=== PATIENT | male | born 1965 | race Caucasian/White ===

== ENCOUNTER 2018-02-25 06:27 | Emergency (ER) | payer SELFPAY ==
[2018-02-25 06:28] VITALS: BP 159/98; PULSE 86; RESP 16; TEMP 36.7; O2SAT 99; BMI 34.9
--- NOTE | 2018-02-25 06:47 | ED.VISSUMM ---
- ER Visit Summary Date of Service: 02/25/18 Chief Complaint: Dental pain History of Present Illness: The patient is a 52 M states the last 3 days since night has had right lower jaw dental pain mild swelling. No fever. She has upper dentures. Multiple lower missing teeth. Physical Examination: Well-appearing middle-age female. Vital signs are stable and afebrile. H EENT exam she is minimal swelling in her right lower jaw at the midportion. Her entire back molars and premolars have been removed. Her left upper dentition is all false teeth. She has a cavity on her right lower last tooth. The molars and premolars are missing. Her left lower jaw also has the last 2 dentition half cavities. There is no significant gingival swelling. No palpable abscess. No trismus. Posterior pharynx unremarkable. Neck nontender no lymphadenopathy. Lungs clear to auscultation bilaterally. Heart regular rhythm no murmur. Abdomen soft nontender. She is moving all 4 extremities. No edema. Neurologically she is awake and alert with no focal motor deficits. Test Results: None Emergency Department Course and Treatment: Treatment Plan: Clindamycin for the cavities and limited [place] 10 no refill for the pain. Otherwise Motrin. Call and follow-up with a dentist as soon as possible. Disposition: Discharge Impression: Acute dental pain secondary to dental caries This note was generated with [employer] dictation software. It may contain incorrect words, spelling, and punctuation that were not noted in review of the chart prior to signing ED Disposition - Plan for ED Patient: Chief Complaint: Dental
--- NOTE | 2018-02-25 06:52 | ED.DCSUM_ITS ---
- ER Visit Summary Date of Service: 02/25/18 Chief Complaint: Dental pain History of Present Illness: The patient is a 52 M states the last 3 days since night has had right lower jaw dental pain mild swelling. No fever. She has upper dentures. Multiple lower missing teeth. Physical Examination: Well-appearing middle-age female. Vital signs are stable and afebrile. H EENT exam she is minimal swelling in her right lower jaw at the midportion. Her entire back molars and premolars have been removed. Her left upper dentition is all false teeth. She has a cavity on her right lower last tooth. The molars and premolars are missing. Her left lower jaw also has the last 2 dentition half cavities. There is no significant gingival swelling. No palpable abscess. No trismus. Posterior pharynx unremarkable. Neck nontender no lymphadenopathy. Lungs clear to auscultation bilaterally. Heart regular rhythm no murmur. Abdomen soft nontender. She is moving all 4 extremities. No edema. Neurologically she is awake and alert with no focal motor deficits. Test Results: None Emergency Department Course and Treatment: Treatment Plan: Clindamycin for the cavities and limited [place] 10 no refill for the pain. Otherwise Motrin. Call and follow-up with a dentist as soon as possible. Disposition: Discharge Impression: Acute dental pain secondary to dental caries This note was generated with [employer] dictation software. It may contain incorrect words, spelling, and punctuation that were not noted in review of the chart prior to signing ED Disposition - Plan for ED Patient: Chief Complaint: Dental
--- NOTE | 2018-02-25 06:52 | ED.DEP ---
ED Disposition - Plan for ED Patient: Disposition: Home or Assisted Living Chief Complaint: Dental Instructions: ED Cavity Dental Prescriptions: Hydrocodone Bitart/Apap 5-325 [[place] 5MG-325MG] 1 tab PO Q6H PRN PRN 3 Days #10 tab PRN Reason: Pain Clindamycin [Cleocin] 150 mg PO 4X/DAY #30 cap Referrals: Allie Murray [NON-STAFF] - As soon as possible Additional Instructions: Clindamycin antibiotic 1 pill 4 times a day. Motrin for pain and Tylenol. Ice to your jaw. Call and follow-up with a dentist as soon as possible.
--- NOTE | 2018-02-25 06:56 | DCINST.ED_ITS ---
ED Disposition - Plan for ED Patient: Disposition: Home or Assisted Living Chief Complaint: Dental Instructions: ED Cavity Dental Prescriptions: Hydrocodone Bitart/Apap 5-325 [[place] 5MG-325MG] 1 tab PO Q6H PRN PRN 3 Days #10 tab PRN Reason: Pain Clindamycin [Cleocin] 150 mg PO 4X/DAY #30 cap Referrals: Allie Murray [NON-STAFF] - As soon as possible Additional Instructions: Clindamycin antibiotic 1 pill 4 times a day. Motrin for pain and Tylenol. Ice to your jaw. Call and follow-up with a dentist as soon as possible.
== END 2018-02-25 07:09 | disposition home or self-care (01) ==
PROVIDERS: Emergency Provider Emergency Medicine
DX: K02.9 Dental caries, unspecified (principal); K08.89 Other specified disorders of teeth and supporting structures; Z97.2 Presence of dental prosthetic device (complete) (partial); Z72.0 Tobacco use
CPT/HCPCS: 99282

== ENCOUNTER → 2024-05-28 | Outpatient (CLI) | payer SELFPAY ==
--- OUTSIDE RECORDS SUMMARY | 2024-05-28 12:07 | XMS RPT_ITS | CCD ---
Author Organization [facility] Inform ion Partnership [facility] Care Team Providers Care Fbi Profiler Name Role Phone Sujata Glover MD Primary Care Provider SUJATA GLOVER Primary Care Unavailable JOSESITO RAMIREZ Referring Unavailable SUJATA GLOVER Primary Care Unavailable SUJATA GLOVER Primary Care Unavailable Allergies Allergy Classification Reported Allergen(s) Allergy Type Date of Onset Reaction(s) Facility (4 sources) FLUoxetine; Translations: [FLUOXETINE] Drug Allergy 09-24-2020 Mental Status Change [facility] (4 sources) Penicillins; Translations: [PENICILLINS] Drug Allergy 12-06-2013 Rash [facility] Work Phone: Medications Completed/Discontinued Medications Medication Drug Class(es) Dates Sig (Normalized) Sig (Original) brompheniramine maleate 0.4 mg/ml / dextromethorphan hydrobromide 2 mg/ml / pseudoephedrine hydrochloride 6 mg/ml oral solution (3 sources) alpha-Adrenergic Agonist, Uncompetitive M-vrffsm-O-asparta te Receptor Antagonist, Sigma-1 Agonist Start: 04-20-2019 take 5 mL by mouth every six hours as needed Brompheniramine-Pse udoeph-DM (BROMFED DM) 2-30-10 mg/5 mL syrup Take 5 mL by mouth four times daily as needed. 120 mL 0 04/20/2019 Active Comment on above: Take 5 mL by mouth f our times daily as needed. busPIRone hydrochloride 5 mg oral tablet (3 sources) Start: 09-24-2020 take 1 tablet by mouth three times daily as needed busPIRone (BUSPAR) 5 mg tablet Indications: Anxiety and depression Take 1 tablet by mouth three times daily as needed. 90 tablet 1 09/24/2020 Active Comment on above: Take 1 tablet by florentin th three times daily as needed. lisinopril 20 mg oral tablet (3 sources) Angiotensin Converting Enzyme Inhibitor Start: 02-12-2021 take 1 tablet by mouth once daily lisinopril (ZESTRIL, PRINIVIL) 20 mg tablet Indications: Primary hypertension Take 1 tablet by mouth once daily. 30 tablet 2 02/12/2021 Active Comment on above: Take 1 tablet by florentin th once daily. ondansetron 4 mg disintegrating oral tablet (3 sources) Serotonin-3 Receptor Antagonist Start: 02-12-2021 take 1 tablet by mouth every six hours as needed for nausea and nausea ondansetron orally disintegrating (ZOFRAN ODT) 4 mg disintegrating tablet Indications: Nausea Take 1 tablet by mouth every 6 hours as needed for nausea/vomiting. 20 tablet 0 02/12/2021 Active Comment on above: Take 1 tablet by florentin th every 6 hours as needed for nausea/vomiting. predniSONE 10 mg oral tablet (2 sources) Start: 04-14-2023 predniSONE (DELTASONE) 10 mg tablet Indications: Upper respiratory tract infection, unspecified type Take 4 tabs daily for 3 days, then 2 tabs daily for 3 days, then 1 tab daily for 3 days with food. 21 tablet 0 04/14/2023 Active Comment on above: Take 4 tabs daily fo r 3 days, then 2 tabs daily for 3 days, then 1 tab daily for 3 days with food. sertraline 25 mg oral tablet (3 sources) Serotonin Reuptake Inhibitor Start: 02-19-2021 take 1 tablet by mouth once daily sertraline (ZOLOFT) 25 mg tablet Take 1 tablet by mouth once daily. 30 tablet 3 02/19/2021 Active Comment on above: Take 1 tablet by florentin th once daily. 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)] Onset: 02-26-2024 Chronic Diabetes mellitus without complication (1 source) Type 2 diabetes mellitus without complications; Translations: [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)] Onset: 02-26-2024 Chronic Immunizations and screening for infectious disease (1 source) Encounter for screening for infections with a predominantly sexual mode of transmission; Translations: [Screening for venereal disease] Onset: 11-29-2023 Episodic Mood disorders (3 sources) Depressive disorder; Translations: [Depression] Onset: 12-06-2013 12-06-2013 Chronic Nutritional deficiencies (1 source) Vitamin D deficiency, unspecified; Translations: [Avitaminosis D] Onset: 11-29-2023 Chronic Other nutritional; endocrine; and metabolic disorders (3 sources) Cholesterol level - finding; Translations: [Lipoprotein deficiency] Onset: 08-18-2015 08-18-2015 Chronic Other nutritional; endocrine; and metabolic disorders (1 source) Obesity, unspecified; Translations: [Obesity, unspecified classification, unspecified obesity type, unspecified whether serious comorbidity present] Onset: 11-29-2023 Chronic Other screening for suspected conditions (not mental disorders or infectious disease) (2 sources) Patient encounter status; Translations: [Encounter for screening mammogram for malignant neoplasm of breast] Episodic Other upper respiratory infections (1 source) Upper respiratory infection; Translations: [Acute upper respiratory infection, unspecified] 04-14-2023 Episodic Past or Other Problems Problem Classification Problem Date Documented Da te Episodic/Chronic Diabetes mellitus without complication (3 sources) Hyperglycemia; Translations: [Impaired fasting glucose] Onset: 12-06-2013 12-06-2013 Episodic Malaise and fatigue (4 sources) Fatigue; Translations: [Other fatigue] Onset: 12-06-2013 12-06-2013 Episodic Residual codes; unclassified (3 sources) Tobacco user; Translations: [Tobacco use] Onset: 08-18-2015 08-18-2015 Episodic Results Test Name Value Interpretation Reference Range Facil ity 25(OH)D3 [facility] 2023 25-hydroxyvitamin D3 [Mass/Vol] 114.0 ng/mL High 31.0-80.0 [facility] Comment on above: Order Comment: Speci men Type: BLOOD SPECIMEN Ordering Facility: [facility] Address: [address] [place] [address], [place] [id number] Performed By: #### 7 3752-8, , 84989-8 #### [facility] CLIA [id number] [address] [place] [address] [place] ALBUMIN/CREATININE RATIO, UR INEon 02-26-2024 Albumin DL <= 20 mg/L (U) [Mass/Vol] mg/dL Normal [facility] Comment on above: Order Comment: Speci men Type: BLOOD SPECIMEN Ordering Facility: [facility] Address: [address] [place] [address], [place] [address] Performed By: #### 7 3752-8, , #### [facility] CLIA [id number] [address] [place] [address] [place] Albumin/Creatinine (U) [Mass ratio] <14 Normal <30 [facility] Comment on above: Order Comment: Speci men Type: BLOOD SPECIMEN Ordering Facility: [facility] Address: [address] [place] [address], [place] [address] Result Comment: Adul t Male and Female Nephrotic Criteria: <30 mg/g is considered normal to mildly increased 30-300 mg/g is considered moderately increased >300 mg/g is considered severely increased KDIGO. (2013). KDIGO 2012 Clinical Practice Guideline for the Evaluation and Management of Chronic Kidney Disease. Official Journal of the International Society of Nephrology, 3(1), 1-150. Performed By: #### 7 3752-8, , #### [facility] CLIA [id number] [address] [place] [address] [place] Creatinine (U) [Mass/Vol] 85.9 mg/dL Normal 20.0-300.0 [facility] Comment on above: Order Comment: Speci men Type: BLOOD SPECIMEN Ordering Facility: [facility] Address: [address] [place] [address], [place] [address] Performed By: #### 7 3752-8, , #### [facility] CLIA [id number] [address] [place] [address] [place] CBC W Auto Differential pane l (Bld)on 02-26-2024 Basophils (Bld) [#/Vol] 0.06 10*3/uL Normal <0.11 [facility] Comment on above: Order Comment: Speci men Type: BLOOD SPECIMEN Ordering Facility: [facility] Address: [address] [place] [address] Performed By: #### 5 7021-8 #### [facility] CLIA [id number] [address] [place] [address] [place] Basophils/100 WBC (Bld) 0.7 % Normal [facility] Comment on above: Order Comment: Speci men Type: BLOOD SPECIMEN Ordering Facility: [facility] Address: [address] [place] [address] Performed By: #### 5 7021-8 #### [facility] CLIA [id number] [address] [place] [address] [place] Differential cell count method Nom (Bld) Auto Normal [facility] Comment on above: Order Comment: Speci men Type: BLOOD SPECIMEN Ordering Facility: [facility] Address: [address] [place] [address] Performed By: #### 5 7021-8 #### [facility] CLIA [id number] [address] [place] [address] [place] Eosinophils (Bld) [#/Vol] 0.43 10*3/uL Normal <0.46 [facility] Comment on above: Order Comment: Speci men Type: BLOOD SPECIMEN Ordering Facility: [facility] Address: [address] [place] [address] Performed By: #### 5 7021-8 #### [facility] CLIA [id number] [address] [id number] [address] [place] Eosinophils/100 WBC (Bld) 5.0 % Normal [facility] Comment on above: Order Comment: Speci men Type: BLOOD SPECIMEN Ordering Facility: [facility] Address: [address] [place] [address] Performed By: #### 5 7021-8 #### [facility] CLIA [id number] [address] [place] [address] [place] Erythrocyte distribution width (RBC) [Ratio] 12.3 % Normal 11.5-15.0 [facility] Comment on above: Order Comment: Speci men Type: BLOOD SPECIMEN Ordering Facility: [facility] Address: [address] [place] [address] Performed By: #### 5 7021-8 #### [facility] CLIA [id number] [address] [place] [address] [place] Hematocrit (Bld) [Volume fraction] 45.7 % Normal 36.0-46.0 [facility] Comment on above: Order Comment: Speci men Type: BLOOD SPECIMEN Ordering Facility: [facility] Address: [address] [place] [address] Performed By: #### 5 7021-8 #### [facility] CLIA [id number] [address] [place] [address] [place] Hemoglobin (Bld) [Mass/Vol] 15.4 g/dL Normal 11.5-15.5 [facility] Comment on above: Order Comment: Speci men Type: BLOOD SPECIMEN Ordering Facility: [facility] Address: [address] [place] [address] Performed By: #### 5 7021-8 #### [facility] CLIA [id number] [address] [place] [address] [place] Immature granulocytes (Bld) [#/Vol] 0.03 10*3/uL Normal <0.10 [facility] Comment on above: Order Comment: Speci men Type: BLOOD SPECIMEN Ordering Facility: [facility] Address: [address] [place] [address], [place] [address] Performed By: #### 5 7021-8 #### [facility] CLIA [id number] [address] [place] [address] [place] Immature granulocytes/100 WBC (Bld) 0.3 % Normal [facility] Comment on above: Order Comment: Speci men Type: BLOOD SPECIMEN Ordering Facility: [facility] Address: [address] [place] [address] Performed By: #### 5 7021-8 #### [facility] CLIA [id number] [address] [place] [address] [place] Lymphocytes (Bld) [#/Vol] 3.18 10*3/uL Normal 1.00-4.00 [facility] Comment on above: Order Comment: Speci men Type: BLOOD SPECIMEN Ordering Facility: [facility] Address: [address] [place] [address] Performed By: #### 5 7021-8 #### [facility] CLIA [id number] [address] [place] [address] [place] Lymphocytes/100 WBC (Bld) 37.1 % Normal [facility] Comment on above: Order Comment: Speci men Type: BLOOD SPECIMEN Ordering Facility: [facility] Address: [address] [place] [address] Performed By: #### 5 7021-8 #### [facility] CLIA [id number] [address] [place] [address] [place] MCH (RBC) [Entitic mass] 32.9 pg Normal 26.0-34.0 [facility] Comment on above: Order Comment: Speci men Type: BLOOD SPECIMEN Ordering Facility: [facility] Address: [address] [place] [address] Performed By: #### 5 7021-8 #### [facility] CLIA [id number] [address] [place] [address] [place] MCHC (RBC) [Mass/Vol] 33.7 g/dL Normal 30.5-36.0 [facility] Comment on above: Order Comment: Speci men Type: BLOOD SPECIMEN Ordering Facility: [facility] Address: [address] [place] [address] Performed By: #### 5 7021-8 #### [facility] CLIA [id number] [address] [place] [address] [place] MCV (RBC) [Entitic vol] 97.6 fL Normal 80.0-100.0 [facility] Comment on above: Order Comment: Speci men Type: BLOOD SPECIMEN Ordering Facility: [facility] Address: [address] [place] [address] Performed By: #### 5 7021-8 #### [facility] CLIA [id number] [address] [place] [address] [place] Monocytes (Bld) [#/Vol] 0.49 10*3/uL Normal <0.87 [facility] Comment on above: Order Comment: Speci men Type: BLOOD SPECIMEN Ordering Facility: [facility] Address: [address] [place] [address] Performed By: #### 5 7021-8 #### [facility] CLIA [id number] [address] [place] [address] [place] Monocytes/100 WBC (Bld) 5.7 % Normal [facility] Comment on above: Order Comment: Speci men Type: BLOOD SPECIMEN Ordering Facility: [facility] Address: [address] [place] [address] Performed By: #### 5 7021-8 #### [facility] CLIA [id number] [address] [place] [address] [place] Neutrophils (Bld) [#/Vol] 4.39 10*3/uL Normal 1.45-7.50 [facility] Comment on above: Order Comment: Speci men Type: BLOOD SPECIMEN Ordering Facility: [facility] Address: [address] [place] [address] Performed By: #### 5 7021-8 #### [facility] CLIA [id number] [address] [place] [address] [place] Neutrophils/100 WBC (Bld) 51.2 % Normal [facility] Comment on above: Order Comment: Speci men Type: BLOOD SPECIMEN Ordering Facility: [facility] Address: [address] [place] [address] Performed By: #### 5 7021-8 #### [facility] CLIA [id number] [address] [place] [address] [place] Nucleated RBC (Bld) [#/Vol] 10*3/uL Normal <0.01 [facility] Comment on above: Order Comment: Speci men Type: BLOOD SPECIMEN Ordering Facility: [facility] Address: [address] [place] [address] Performed By: #### 5 7021-8 #### [facility] CLIA [id number] [address] [place] [address] [place] Nucleated RBC/100 WBC (Bld) [Ratio] 0.0 /100 WBC Normal [facility] Comment on above: Order Comment: Speci men Type: BLOOD SPECIMEN Ordering Facility: [facility] Address: [address] [place] [address] Performed By: #### 5 7021-8 #### [facility] CLIA [id number] [address] [place] [address] [place] Platelet mean volume (Bld) [Entitic vol] 11.5 fL Normal 9.0-12.7 [facility] Comment on above: Order Comment: Speci men Type: BLOOD SPECIMEN Ordering Facility: [facility] Address: [address] [place] [address] [place] [address] Performed By: #### 5 7021-8 #### [facility] CLIA [id number] [address] [place] [address] [place] Platelets (Bld) [#/Vol] 191 10*3/uL Normal 150-400 [facility] Comment on above: Order Comment: Speci men Type: BLOOD SPECIMEN Ordering Facility: [facility] Address: [address] [place] [address], [place] [address] Performed By: #### 5 7021-8 #### [facility] CLIA [id number] [address] [place] [address] [place] RBC (Bld) [#/Vol] 4.68 10*6/uL Normal 3.90-5.20 [facility] Comment on above: Order Comment: Speci men Type: BLOOD SPECIMEN Ordering Facility: [facility] Address: [address] [place] [address], [place] [address] Performed By: #### 5 7021-8 #### [facility] CLIA [id number] [address] [place] [address] [place] WBC (Bld) [#/Vol] 8.58 10*3/uL Normal 3.70-11.00 [facility] Comment on above: Order Comment: Speci men Type: BLOOD SPECIMEN Ordering Facility: [facility] Address: [address] [place] [address], [place] [address] Performed By: #### 5 7021-8 #### [facility] CLIA [id number] [address] [place], [place] [address] [place] Comprehensive metabolic 2000 panelon 02-26-2024 Albumin [Mass/Vol] 4.1 g/dL Normal 3.9-4.9 [facility] Comment on above: Order Comment: Speci men Type: BLOOD SPECIMEN Ordering Facility: [facility] Address: [address] [place] [address] Performed By: #### 7 3752-8, 55905-5, 23424-6 #### [facility] CLIA [id number] [address] [place] [address] [place] ALP [Catalytic activity/Vol] 158 U/L High 34-123 [facility] Comment on above: Order Comment: Speci men Type: BLOOD SPECIMEN Ordering Facility: [facility] Address: [address] [place] [address], [place] [address] Performed By: #### 7 3752-8, 75236-3, 87923-9 #### [facility] CLIA [id number] [address] [place] [address] [place] ALT [Catalytic activity/Vol] 50 U/L High 7-38 [facility] Comment on above: Order Comment: Speci men Type: BLOOD SPECIMEN Ordering Facility: [facility] Address: [address] [place] [address], [place] [address] Performed By: #### 7 3752-8, 12616-4, 60324-4 #### [facility] CLIA [id number] [address] [place] [address] [place] Anion gap [Moles/Vol] 13 mmol/L Normal 8-15 [facility] Comment on above: Order Comment: Speci men Type: BLOOD SPECIMEN Ordering Facility: [facility] Address: [address] [place] [address], [place] [address] Performed By: #### 7 3752-8, 69768-9, 28548-2 #### [facility] CLIA [id number] [address] [place] [address] [place] AST [Catalytic activity/Vol] 69 U/L High 13-35 [facility] Comment on above: Order Comment: Speci men Type: BLOOD SPECIMEN Ordering Facility: [facility] Address: [address] [place] [address] Performed By: #### 7 3752-8, 18749-4, 22708-5 #### [facility] CLIA [id number] [address] [place] [address] [place] Bilirubin [Mass/Vol] 0.6 mg/dL Normal 0.2-1.3 [facility] Comment on above: Order Comment: Speci men Type: BLOOD SPECIMEN Ordering Facility: [facility] Address: [address] [place] [address], [place] [address] Performed By: #### 7 3752-8, 57680-5, 05491-3 #### [facility] CLIA [id number] [address] [place] [address] [place] Calcium [Mass/Vol] 10.0 mg/dL Normal 8.5-10.2 [facility] Comment on above: Order Comment: Speci men Type: BLOOD SPECIMEN Ordering Facility: [facility] Address: [address] [place] [address], [place] [address] Performed By: #### 7 3752-8, 96748-0, 24058-2 #### [facility] CLIA [id number] [address] [place] [address] [place] Chloride [Moles/Vol] 104 mmol/L Normal 98-107 [facility] Comment on above: Order Comment: Speci men Type: BLOOD SPECIMEN Ordering Facility: [facility] Address: [address] [place] [address], [place] [address] Performed By: #### 7 3752-8, 10733-2, 57009-6 #### [facility] CLIA [id number] [facility] [place] [address] [place] CO2 [Moles/Vol] 22 mmol/L Normal 22-30 [facility] Comment on above: Order Comment: Speci men Type: BLOOD SPECIMEN Ordering Facility: [facility] Address: [address] [place] [address], [place] [address] Performed By: #### 7 3752-8, 81347-0, 44232-9 #### [facility] CLIA [id number] [address] [place] [address] [place] Creatinine [Mass/Vol] 0.79 mg/dL Normal 0.58-0.96 [facility] Comment on above: Order Comment: Zaida hull Type: BLOOD SPECIMEN Ordering Facility: [facility] Address: [address] [place] [address], [place] [address] Performed By: #### 7 3752-8, 01703-2, 31393-6 #### [facility] CLIA [id number] [address] [place] [address] [place] Creatinine and Glomerular filtration rate.predicted panel (S/P/Bld) 87 mL/min/1.73m??? Normal >=60 [facility] Comment on above: Order Comment: Zaida hull Type: BLOOD SPECIMEN Ordering Facility: [facility] Address: [address] [place] [address], [place] [address] Result Comment: Margo mated Glomerular Filtration Rate (eGFR) is calculated using the 2020 CKD-EPI creatinine equation. This equation utilizes serum creatinine, sex, and age as parameters. The creatinine assay has traceable calibration to isotope dilution-mass spectrometry. Refer to KDIGO guidelines for clinical interpretation. In patients with unstable renal function, e.g. those with acute kidney injury, the eGFR may not accurately reflect actual GFR. Performed By: #### 7 3752-8, 69403-7, 94466-2 #### [facility] CLIA [id number] [address] [place], [place] [address] [place] Glucose [Mass/Vol] 209 mg/dL High 74-99 [facility] Comment on above: Order Comment: Zaida hull Type: BLOOD SPECIMEN Ordering Facility: [facility] Address: [address] [place] [address], [place] [address] Result Comment: The [place] Diabetes Association (ADA) provides guidance for cutoff values for fasting glucose and random glucose. The ADA defines fasting as no caloric intake for at least 8 hours. Fasting plasma glucose results between 100 to 125 mg/dL indicate increased risk for diabetes (prediabetes). Fasting plasma glucose results greater than or equal to 126 mg/dL meet the criteria for diagnosis of diabetes. In the absence of unequivocal hyperglycemia, results should be confirmed by repeat testing. In a patient with classic symptoms of hyperglycemia or hyperglycemic crisis, random plasma glucose results greater than or equal to 200 mg/dL meet the criteria for diagnosis of diabetes. Reference: Standards of Medical Care in Diabetes 2016, [place] Diabetes Association. Diabetes Care. 2016.39(Suppl 1). Performed By: #### 7 3752-8, 49399-2, 57244-8 #### [facility] CLIA [id number] [facility] [place] [address] [place] Potassium [Moles/Vol] 4.3 mmol/L Normal 3.7-5.1 [facility] Comment on above: Order Comment: Zaida hull Type: BLOOD SPECIMEN Ordering Facility: [facility] Address: [address] [place] [address] Performed By: #### 7 3752-8, 94954-4, 90650-2 #### [facility] CLIA [id number] [address] [place] [address] [place] Protein [Mass/Vol] 6.9 g/dL Normal 6.3-8.0 [facility] Comment on above: Order Comment: Zaida hull Type: BLOOD SPECIMEN Ordering Facility: [facility] Address: [address] [place] [address] Performed By: #### 7 3752-8, 29199-4, 29075-7 #### [facility] CLIA [id number] [address] [place] [address] [place] Sodium [Moles/Vol] 139 mmol/L Normal 136-144 [facility] Comment on above: Order Comment: Zaida hull Type: BLOOD SPECIMEN Ordering Facility: [facility] Address: [address] [place] [address] Performed By: #### 7 3752-8, 52504-2, 86966-7 #### [facility] CLIA [id number] [address] [place] [id number] [place] Urea nitrogen [Mass/Vol] 12 mg/dL Normal 7-21 [facility] Comment on above: Order Comment: Speci men Type: BLOOD SPECIMEN Ordering Facility: [facility] Address: [address] [place] [address], [place] [address] Performed By: #### 7 3752-8, 76373-9, 02287-7 #### [facility] CLIA [id number] [address] [place] [address] [place] Lipid 1996 panelon 4 Cholesterol [Mass/Vol] 229 mg/dL High <200 [facility] Comment on above: Order Comment: Shayi men Type: BLOOD SPECIMEN Ordering Facility: [facility] Address: [address] [place] [address] Result Comment: <200 mg/dL, Desirable 200-239 mg/dL, Borderline high >239 mg/dL, High Performed By: #### 2 4331-1 #### [facility] CLIA [id number] [address] [place] [address] [place] Cholesterol in HDL [Mass/Vol] 43 mg/dL Normal >39 [facility] Comment on above: Order Comment: Shayi men Type: BLOOD SPECIMEN Ordering Facility: [facility] Address: [address] [place] [address] Result Comment: 40-5 9 mg/dL, Acceptable >59 mg/dL, High: Negative risk factor for coronary heart disease <40 mg/dL, Low: Positive risk factor for coronary heart disease Performed By: #### 2 4331-1 #### [facility] CLIA [id number] [address] [place] [address] [place] Cholesterol in LDL [Mass/Vol] 145 mg/dL High <100 [facility] Comment on above: Order Comment: Speci men Type: BLOOD SPECIMEN Ordering Facility: [facility] Address: [address] [place] [address], [place] [address] Result Comment: <100 mg/dL, Optimal 100-129 mg/dL, Near optimal/above optimal 130-159 mg/dL, Borderline high 160-189 mg/dL, High >189 mg/dL, Very high Secondary prevention optimal LDL Cholesterol levels are recommended to be < 70 mg/dL Performed By: #### 2 4331-1 #### [facility] CLIA [id number] [address] [place] [address] [place] Cholesterol in LDL/Cholesterol in HDL [Mass ratio] 3.37 {ratio} High <2.54 [facility] Comment on above: Order Comment: Zaida hull Type: BLOOD SPECIMEN Ordering Facility: [facility] Address: [address] [place] [address] Result Comment: Neema iniguez: 1. National Cholesterol Education Program ATP III Guideline At-A-Glance Quick Desk Reference: National Heart, Lung, and Blood [place]. National Institutes of Health. 2001: NIH Publication No. 01-3305. 2. An International Atherosclerosis Society position paper: global recommendations for the management of dyslipidemia: executive summary, Atherosclerosis. 2014: 232(2):410-413. Performed By: #### 2 4331-1 #### [facility] IA [id number] [address] [place] [address] [place] Cholesterol in VLDL [Mass/Vol] 41 mg/dL High <30 [facility] Comment on above: Order Comment: Zaida hull Type: BLOOD SPECIMEN Ordering Facility: [facility] Address: [address] [place] [address], [place] [address] Performed By: #### 2 4331-1 #### [facility] IA [id number] [address] [place] [address] [place] Cholesterol non HDL [Mass/Vol] 186 mg/dL High <130 [facility] Comment on above: Order Comment: Zaida hull Type: BLOOD SPECIMEN Ordering Facility: [facility] Address: [address] [place] [address], [place] [address] Result Comment: <130 mg/dL, Optimal 130-159 mg/dL, Near optimal/above optimal 160-189 mg/dL, Borderline high 190-219 mg/dL, High >219 mg/dL, Very high Secondary prevention optimal non HDL Cholesterol levels are recommended to be <100 mg/dL Performed By: #### 2 4331-1 #### [facility] CLIA [id number] [address] [place] [address] [place] Cholesterol.total/Ch olesterol in HDL [Mass ratio] 5.33 {ratio} High <5.10 [facility] Comment on above: Order Comment: Speci men Type: BLOOD SPECIMEN Ordering Facility: [facility] Address: [address] [place] [address], [place] [address] Performed By: #### 2 4331-1 #### [facility] CLIA [id number] [address] [place] [address] [place] FASTING TIME 12 hrs Normal [facility] Comment on above: Order Comment: Speci men Type: BLOOD SPECIMEN Ordering Facility: [facility] Address: [address] [place] [address], [place] [address] Performed By: #### 2 4331-1 #### [facility] CLIA [id number] [address] [place] [address] [place] Triglyceride [Mass/Vol] 205 mg/dL High <150 [facility] Comment on above: Order Comment: Speci men Type: BLOOD SPECIMEN Ordering Facility: [facility] Address: [address] [place] [address], [place] [address] Result Comment: <150 mg/dL, Normal 150-199 mg/dL, Borderline high 200-499 mg/dL, High >499 mg/dL, Very high Performed By: #### 2 4331-1 #### [facility] CLIA [id number] [address] [place] [address] [place] TSH SerPl-aCncon 02-26-2024 TSH Qn 2.430 m[IU]/L Normal 0.270-4.200 [facility] Comment on above: Order Comment: Speci men Type: BLOOD SPECIMEN Ordering Facility: [facility] Address: [address] [place] [address], [place] [address] Performed By: #### 7 3752-8, 20495-2, 33707-1 #### [facility] CLIA [id number] [address] [place] [address] [place] 25(OH)D3 SerPl-ncon 2023 25-hydroxyvitamin D3 [Mass/Vol] 66.1 ng/mL Normal 31.0-80.0 [facility] Comment on above: Order Comment: Speci men Type: BLOOD SPECIMEN Ordering Facility: [facility] Address: [address] [place] [address], [place] [address] Performed By: #### 7 3752-8, 51415-5, #### [facility] CLIA [id number] [address] [place] [address] [place] CBC W Auto Differential pane l (Bld)on 11-29-2023 Basophils (Bld) [#/Vol] 0.07 10*3/uL Normal <0.11 [facility] Comment on above: Order Comment: Speci men Type: BLOOD SPECIMEN Ordering Facility: [facility] Address: [address] [place] [address], [place] [address] Performed By: #### 5 7021-8 #### [facility] CLIA [id number] [address] [place] [address] [place] Basophils/100 WBC (Bld) 0.7 % Normal [facility] Comment on above: Order Comment: Speci men Type: BLOOD SPECIMEN Ordering Facility: [facility] Address: [address] [place] [address], [place] [address] Performed By: #### 5 7021-8 #### [facility] CLIA [id number] [address] [place] [address] [place] Differential cell count method Nom (Bld) Auto Normal [facility] Comment on above: Order Comment: Speci men Type: BLOOD SPECIMEN Ordering Facility: [facility] Address: [address] [place] [address] Performed By: #### 5 7021-8 #### [facility] CLIA [id number] [address] [place] [address] [place] Eosinophils (Bld) [#/Vol] 0.20 10*3/uL Normal <0.46 [facility] Comment on above: Order Comment: Speci men Type: BLOOD SPECIMEN Ordering Facility: [facility] Address: [address] [place] [address] Performed By: #### 5 7021-8 #### [facility] CLIA [id number] [address] [place] [address] [place] Eosinophils/100 WBC (Bld) 2.0 % Normal [facility] Comment on above: Order Comment: Speci men Type: BLOOD SPECIMEN Ordering Facility: [facility] Address: [address] [place] [address] Performed By: #### 5 7021-8 #### [facility] CLIA [id number] [address] [place] [address] [place] Erythrocyte distribution width (RBC) [Ratio] 11.7 % Normal 11.5-15.0 [facility] Comment on above: Order Comment: Speci men Type: BLOOD SPECIMEN Ordering Facility: [facility] Address: [address] [place] [address] Performed By: #### 5 7021-8 #### [facility] CLIA [id number] [address] [place] [address] [place] Hematocrit (Bld) [Volume fraction] 48.9 % High 36.0-46.0 [facility] Comment on above: Order Comment: Speci men Type: BLOOD SPECIMEN Ordering Facility: [facility] Address: [address] [place] [address] Performed By: #### 5 7021-8 #### [facility] CLIA [id number] [address] [place] [address] [place] Hemoglobin (Bld) [Mass/Vol] 16.9 g/dL High 11.5-15.5 [facility] Comment on above: Order Comment: Speci men Type: BLOOD SPECIMEN Ordering Facility: [facility] Address: [address] [place] [address] Performed By: #### 5 7021-8 #### [facility] CLIA [id number] [address] [place] [address] [place] Immature granulocytes (Bld) [#/Vol] 0.04 10*3/uL Normal <0.10 [facility] Comment on above: Order Comment: Speci men Type: BLOOD SPECIMEN Ordering Facility: [facility] Address: [address] [place] [address] Performed By: #### 5 7021-8 #### [facility] CLIA [id number] [address] [place] [address] [place] Immature granulocytes/100 WBC (Bld) 0.4 % Normal [facility] Comment on above: Order Comment: Speci men Type: BLOOD SPECIMEN Ordering Facility: [facility] Address: [address] [place] [address] Performed By: #### 5 7021-8 #### [facility] CLIA [id number] [address] [place] [address] [place] Lymphocytes (Bld) [#/Vol] 2.63 10*3/uL Normal 1.00-4.00 [facility] Comment on above: Order Comment: Speci men Type: BLOOD SPECIMEN Ordering Facility: [facility] Address: [address] [place] [address] Performed By: #### 5 7021-8 #### [facility] CLIA [id number] [address] [place] [address] [place] Lymphocytes/100 WBC (Bld) 25.9 % Normal [facility] Comment on above: Order Comment: Speci men Type: BLOOD SPECIMEN Ordering Facility: [facility] Address: [address] [place] [address] Performed By: #### 5 7021-8 #### [facility] CLIA [id number] [address] [place] [address] [place] MCH (RBC) [Entitic mass] 33.4 pg Normal 26.0-34.0 [facility] Comment on above: Order Comment: Speci men Type: BLOOD SPECIMEN Ordering Facility: [facility] Address: [address] [place] [address] Performed By: #### 5 7021-8 #### [facility] CLIA [id number] [address] [place] [address] [place] MCHC (RBC) [Mass/Vol] 34.6 g/dL Normal 30.5-36.0 [facility] Comment on above: Order Comment: Speci men Type: BLOOD SPECIMEN Ordering Facility: [facility] Address: [address] [place] [address] Performed By: #### 5 7021-8 #### [facility] CLIA [id number] [address] [place] [address] [place] MCV (RBC) [Entitic vol] 96.6 fL Normal 80.0-100.0 [facility] Comment on above: Order Comment: Speci men Type: BLOOD SPECIMEN Ordering Facility: [facility] Address: [address] [place] [address] Performed By: #### 5 7021-8 #### [facility] CLIA [id number] [address] [place] [address] [place] Monocytes (Bld) [#/Vol] 0.63 10*3/uL Normal <0.87 [facility] Comment on above: Order Comment: Speci men Type: BLOOD SPECIMEN Ordering Facility: [facility] Address: [address] [place] [address] Performed By: #### 5 7021-8 #### [facility] CLIA [id number] [address] [place] [address] [place] Monocytes/100 WBC (Bld) 6.2 % Normal [facility] Comment on above: Order Comment: Speci men Type: BLOOD SPECIMEN Ordering Facility: [facility] Address: [address] [place] [address] Performed By: #### 5 7021-8 #### [facility] CLIA [id number] [address] [place] [id number] [place] Neutrophils (Bld) [#/Vol] 6.58 10*3/uL Normal 1.45-7.50 [facility] Comment on above: Order Comment: Speci men Type: BLOOD SPECIMEN Ordering Facility: [facility] Address: [address] [place] [address] Performed By: #### 5 7021-8 #### [facility] CLIA [id number] [address] [place] [address] [place] Neutrophils/100 WBC (Bld) 64.8 % Normal [facility] Comment on above: Order Comment: Speci men Type: BLOOD SPECIMEN Ordering Facility: [facility] Address: [address] [place] [address] Performed By: #### 5 7021-8 #### [facility] CLIA [id number] [address] [place] [id number] [place] Nucleated RBC (Bld) [#/Vol] 10*3/uL Normal <0.01 [facility] Comment on above: Order Comment: Speci men Type: BLOOD SPECIMEN Ordering Facility: [facility] Address: [address] [place] [address] Performed By: #### 5 7021-8 #### [facility] CLIA [id number] [address] [place] [id number] [place] Nucleated RBC/100 WBC (Bld) [Ratio] 0.0 /100 WBC Normal [facility] Comment on above: Order Comment: Speci men Type: BLOOD SPECIMEN Ordering Facility: [facility] Address: [address] [place] [address] Performed By: #### 5 7021-8 #### [facility] CLIA [id number] [address] [place] [address] [place] Platelet mean volume (Bld) [Entitic vol] 12.2 fL Normal 9.0-12.7 [facility] Comment on above: Order Comment: Speci men Type: BLOOD SPECIMEN Ordering Facility: [facility] Address: [address] [place] [address] Performed By: #### 5 7021-8 #### [facility] CLIA [id number] [address] [place] [address] [place] Platelets (Bld) [#/Vol] 219 10*3/uL Normal 150-400 [facility] Comment on above: Order Comment: Speci men Type: BLOOD SPECIMEN Ordering Facility: [facility] Address: [address] [place] [address] Performed By: #### 5 7021-8 #### [facility] CLIA [id number] [address] [place] [address] [place] RBC (Bld) [#/Vol] 5.06 10*6/uL Normal 3.90-5.20 [facility] Comment on above: Order Comment: Speci men Type: BLOOD SPECIMEN Ordering Facility: [facility] Address: [address] [place] [address] Performed By: #### 5 7021-8 #### [facility] CLIA [id number] [address] [place] [address] [place] WBC (Bld) [#/Vol] 10.15 10*3/uL Normal 3.70-11.00 [facility] Comment on above: Order Comment: Speci men Type: BLOOD SPECIMEN Ordering Facility: [facility] Address: [address], [place] [address] Performed By: #### 5 7021-8 #### [facility] CLIA [id number] [address] [place] [id number] [place] Comprehensive metabolic 2000 panelon 11-29-2023 Albumin [Mass/Vol] 4.5 g/dL Normal 3.9-4.9 [facility] Comment on above: Order Comment: Speci men Type: BLOOD SPECIMEN Ordering Facility: [facility] Address: [address] [place] [address] RD, [place] [address] Performed By: #### 3 016-3, , 2132-03 #### [facility] CLIA [id number] [address] [place] [address] [place] ALP [Catalytic activity/Vol] 250 U/L High 34-123 [facility] Comment on above: Order Comment: Speci men Type: BLOOD SPECIMEN Ordering Facility: [facility] Address: [address] [facility] [address], [place] [address] Performed By: #### 3 016-3, , 2132-03 #### [facility] CLIA [id number] [address] [place], [place] [address] [place] ALT [Catalytic activity/Vol] 91 U/L High 7-38 [facility] Comment on above: Order Comment: Speci men Type: BLOOD SPECIMEN Ordering Facility: [facility] Address: [address] [facility] [address], [place] [address] Performed By: #### 3 016-3, , 2132-03 #### [facility] CLIA [id number] [address] [place], [place] [address] [place] Anion gap [Moles/Vol] 17 mmol/L Normal 9-18 [facility] Comment on above: Order Comment: Speci men Type: BLOOD SPECIMEN Ordering Facility: [facility] Address: [address], [place] [address] Performed By: #### 3 016-3, , 2132-03 #### [facility] CLIA [id number] [address] [place] [address] [place] AST [Catalytic activity/Vol] 134 U/L High 13-35 [facility] Comment on above: Order Comment: Speci men Type: BLOOD SPECIMEN Ordering Facility: [facility] Address: [address], [place] [address] Performed By: #### 3 016-3, 50381-1, 2132-03 #### [facility] CLIA [id number] [address] [place] [address] [place] Bilirubin [Mass/Vol] 0.9 mg/dL Normal 0.2-1.3 [facility] Comment on above: Order Comment: Speci men Type: BLOOD SPECIMEN Ordering Facility: [facility] Address: [address] [place] [address], [place] [address] Performed By: #### 3 016-3, , 2132-03 #### [facility] CLIA [id number] [address] [place] [address] [place] Calcium [Mass/Vol] 9.8 mg/dL Normal 8.5-10.2 [facility] Comment on above: Order Comment: Speci men Type: BLOOD SPECIMEN Ordering Facility: [facility] Address: [address] [facility] [address], [place] [address] Performed By: #### 3 016-3, , 2132-03 #### [facility] CLIA [id number] [address] [place], [place] [address] [place] Chloride [Moles/Vol] 97 mmol/L Normal 97-105 [facility] Comment on above: Order Comment: Speci men Type: BLOOD SPECIMEN Ordering Facility: [facility] Address: [address] [place] [address] Performed By: #### 3 016-3, 49301-2, 2132-03 #### [facility] CLIA [id number] [address] [place] [address] [place] CO2 [Moles/Vol] 21 mmol/L Low 22-30 [facility] Comment on above: Order Comment: Speci men Type: BLOOD SPECIMEN Ordering Facility: [facility] Address: [address] [place] [address] Performed By: #### 3 016-3, 10584-0, 2132-03 #### [facility] CLIA [id number] [address] [place] [address] [place] Creatinine [Mass/Vol] 0.77 mg/dL Normal 0.58-0.96 [facility] Comment on above: Order Comment: Speci men Type: BLOOD SPECIMEN Ordering Facility: [facility] Address: [address] [place] [address] Performed By: #### 3 016-3, , 2132-03 #### [facility] CLIA [id number] [address] [place] [address] [facility] Creatinine and Glomerular filtration rate.predicted panel (S/P/Bld) 90 mL/min/1.73m??? Normal >=60 [facility] Comment on above: Order Comment: Speci men Type: BLOOD SPECIMEN Ordering Facility: [facility] Address: [address] [place] [address] Result Comment: Margo mated Glomerular Filtration Rate (eGFR) is calculated using the 2020 CKD-EPI creatinine equation. This equation utilizes serum creatinine, sex, and age as parameters. The creatinine assay has traceable calibration to isotope dilution-mass spectrometry. Refer to KDIGO guidelines for clinical interpretation. In patients with unstable renal function, e.g. those with acute kidney injury, the eGFR may not accurately reflect actual GFR. Performed By: #### 3 016-3, 19314-9, 2132-03 #### [facility] CLIA [id number] [address] [place] [id number] [place] Glucose [Mass/Vol] 430 mg/dL High 74-99 [facility] Comment on above: Order Comment: Shayi men Type: BLOOD SPECIMEN Ordering Facility: [facility] Address: [address] [place] [address], [place] [address] Result Comment: The [place] Diabetes Association (ADA) provides guidance for cutoff values for fasting glucose and random glucose. The ADA defines fasting as no caloric intake for at least 8 hours. Fasting plasma glucose results between 100 to 125 mg/dL indicate increased risk for diabetes (prediabetes). Fasting plasma glucose results greater than or equal to 126 mg/dL meet the criteria for diagnosis of diabetes. In the absence of unequivocal hyperglycemia, results should be confirmed by repeat testing. In a patient with classic symptoms of hyperglycemia or hyperglycemic crisis, random plasma glucose results greater than or equal to 200 mg/dL meet the criteria for diagnosis of diabetes. Reference: Standards of Medical Care in Diabetes 2016, [place] Diabetes Association. Diabetes Care. 2016.39(Suppl 1). Performed By: #### 3 016-3, 78945-9, 2132-03 #### [facility] CLIA [id number] [address] [place] [address] [place] Potassium [Moles/Vol] 4.2 mmol/L Normal 3.7-5.1 [facility] Comment on above: Order Comment: Zaida hull Type: BLOOD SPECIMEN Ordering Facility: [facility] Address: [address] [place] [address] Performed By: #### 3 016-3, 55597-6, 2132-03 #### [facility] CLIA [id number] [address] [place] [id number] [place] Protein [Mass/Vol] 7.4 g/dL Normal 6.3-8.0 [facility] Comment on above: Order Comment: Zaida hull Type: BLOOD SPECIMEN Ordering Facility: [facility] Address: [address] [place] [address], [place] [address] Performed By: #### 3 016-3, 31135-2, 2132-03 #### [facility] CLIA [id number] [facility] [place] [address] [place] Sodium [Moles/Vol] 135 mmol/L Low 136-144 [facility] Comment on above: Order Comment: Speci men Type: BLOOD SPECIMEN Ordering Facility: [facility] Address: [address] [place] [address], [place] [address] Performed By: #### 3 016-3, 29422-4, 2132-03 #### [facility] CLIA [id number] [address] [place] [address] [place] Urea nitrogen [Mass/Vol] 10 mg/dL Normal - [facility] Comment on above: Order Comment: Speci men Type: BLOOD SPECIMEN Ordering Facility: [facility] Address: [address] [place] [address], [place] [address] Performed By: #### 3 016-3, , 2132-03 #### [facility] CLIA [id number] [address] [place] [address] [place] HBV core Ab Ser Qlon 024 HBV core Ab Ql (S) Negative Normal Negative [facility] Comment on above: Order Comment: Speci men Type: BLOOD SPECIMEN Ordering Facility: [facility] Address: [address] [place] [address], [place] [address] Result Comment: No e vidence of current or past infection with Hepatitis B virus. Should recent infection be suspected, repeat testing may be considered 3-4 weeks after this draw. Performed By: #### 7 3752-8, 43492-8, 90206-9 #### [facility] CLIA [id number] [address] [place] [address] [place] HBV surface Ab Ql (S)on HBV surface Ab Qn (S) >1000.00 Normal [facility] Comment on above: Order Comment: Speci men Type: BLOOD SPECIMEN Ordering Facility: [facility] Address: [address] [place] [address] Result Comment: <8 m IU/mL: No serological evidence of immunity to Hepatitis B Virus. >/= 8 to <12 mIU/mL: No serological evidence of immunity to Hepatitis B Virus. >/= 12 mIU/mL: Consistent with serological evidence of immunity to Hepatitis B Virus. Performed By: #### 7 3752-8, 56178-2, 27136-0 #### [facility] CLIA [id number] [address] [place] [address] [place] HBV surface Ab Ser Qlon 05-0 HBV surface Ab Ql (S) Positive Normal [facility] Comment on above: Order Comment: Speci men Type: BLOOD SPECIMEN Ordering Facility: [facility] Address: [address] [place] [address] Result Comment: Cons istent with serological evidence of immunity to Hepatitis B Virus. Performed By: #### 7 3752-8, 35459-4, 78907-2 #### [facility] CLIA [id number] [address] [place] [address] [place] HBV surface Ag Ser Qlon 05 HBV surface Ag Ql (S) Negative Normal Negative [facility] Comment on above: Order Comment: Speci men Type: BLOOD SPECIMEN Ordering Facility: [facility] Address: [address] [place] [address] Performed By: #### 7 3752-8, 36742-1, 66472-8 #### [facility] CLIA [id number] [address] [place] [address] [place] HCV Ab Ser Qlon 11-29-2023 HCV Ab Ql (S) Negative Normal Negative [facility] Comment on above: Order Comment: Speci men Type: BLOOD SPECIMEN Ordering Facility: [facility] Address: [address] [place] [address] Result Comment: The result suggests no evidence of active infection with Hepatitis C virus. Should recent infection be suspected, repeat testing may be considered 4-6 weeks after this draw. Performed By: #### 1 6128-1 #### [facility] CLIA [id number] [address] [place] [address] [place] [facility] [place] HIV 1+2 Ab IA Qlon 4 HIV 1 and 2 Ab IA.rapid Nom (S/P/Bld) Normal [facility] Comment on above: Order Comment: Speci men Type: BLOOD SPECIMEN Ordering Facility: [facility] Address: [address] [place] [address] Result Comment: Test not indicated. Performed By: #### 7 3752-8, 47640-1, 83140-4 #### [facility] CLIA [id number] [address] [place] [address] [place] HIV 1+2 Ab+HIV1 p24 Ag IA Ql Non-Reactive Normal Nonreactive [facility] Comment on above: Order Comment: Speci men Type: BLOOD SPECIMEN Ordering Facility: [facility] Address: [address] [place] [address] Performed By: #### 7 3752-8, 74450-5, 44944-7 #### [facility] CLIA [id number] [address] [place] [address] [place] HIV immunoassay testing algorithm interpretation (S/P/Bld) [Interp] Normal [facility] Comment on above: Order Comment: Speci men Type: BLOOD SPECIMEN Ordering Facility: [facility] Address: [address] [place] [address] Result Comment: No e vidence of HIV-1 or HIV-2 infection. Should recent infection be suspected, repeat testing may be considered 2-3 weeks after this draw. [place] Rev. Code 3701.243(E): This information has been disclosed to you from confidential records protected from disclosure by state law. ???You shall make no further disclosure of this information without the specific, written, and informed release of the individual to whom it pertains or as otherwise permitted by state law. A general authorization for the release of medical or other information is not sufficient for the purpose of the release of HIV test results or diagnoses. Performed By: #### 7 3752-8, 78415-8, 16820-4 #### [facility] CLIA [id number] [address] [place] [address] [place] HbA1c (Bld)on 11-29-2023 Average glucose Estimated from glycated hemoglobin (Bld) [Mass/Vol] 344 mg/dL Normal [facility] Comment on above: Order Comment: Speci men Type: BLOOD SPECIMEN Ordering Facility: [facility] Address: [address] [place] [address] Result Comment: eAG: (Estimated average glucose) is a calculated value from HgbA1c and is sales and service representative of the average blood glucose level in the last 2-3 month period. Performed By: #### 7 3752-8, , #### [facility] CLIA [id number] [address] [place] [address] [place] HbA1c (Bld) [Mass fraction] 13.6 % High 4.3-5.6 [facility] Comment on above: Order Comment: [facility] Type: BLOOD SPECIMEN Ordering Facility: [facility] Address: [address] [place] [address] Result Comment: Amer [place] Diabetes Association guidelines indicate that patients with HgbA1c in the range 5.7-6.4% are at increased risk for development of diabetes, and intervention by lifestyle modification may be beneficial. HgbA1c greater or equal to 6.5% is considered diagnostic of diabetes. Performed By: #### 7 3752-8, , 27113-5 #### [facility] CLIA [id number] [address] [place] [address] [place] Reagin and Treponema pallidu m IgG and IgM [Interp]on 11-29-2023 T. pallidum IgG+IgM IA Ql (S) Non-Reactive Normal Nonreactive [facility] Comment on above: Order Comment: Speci men Type: BLOOD SPECIMEN Ordering Facility: [facility] Address: [address] [place] [address], [place] [address] Performed By: #### 7 3752-8, 83728-0, 95654-7 #### [facility] CLIA [id number] [address] [place] [address] [place] Reagin+T pallidum IgG+IgM Se rPl-Impon 11-29-2023 Reagin and Treponema pallidum IgG and IgM [Interp] Cannot exclude recent Treponemal infection if specimen collected within 7-10 days after appearance of suspect lesions or 2-3 weeks after an exposure. Clinical correlation is required. Normal [facility] Comment on above: Order Comment: Speci men Type: BLOOD SPECIMEN Ordering Facility: [facility] Address: [address] [place] [address], [place] [address] Performed By: #### 7 3752-8, 55836-4, #### [facility] CLIA [id number] [address] [place] [address] [place] TSH SerPl-aCncon 11-29-2023 TSH Qn 1.890 m[IU]/L Normal 0.270-4.200 [facility] Comment on above: Order Comment: Speci men Type: BLOOD SPECIMEN Ordering Facility: [facility] Address: [address] [place] [address], [place] [address] Performed By: #### 3 016-3, , 2132-03 #### [facility] CLIA [id number] [address] [place] [address] [place] Vit B12 SerPl-mCncon 024 Cobalamin (Vitamin B12) [Mass/Vol] 1437 pg/mL High 232-1245 [facility] Comment on above: Order Comment: Speci men Type: BLOOD SPECIMEN Ordering Facility: [facility] Address: [address] [place] [address], [place] [address] Performed By: #### 3 016-3, , 2132-03 #### [facility] CLIA [id number] [address] [place] [address] [place] [facility] Petty 04-15-2023 CNPN Telephone (UCWSTR) LONI MASTERSON ([id number]) 1965 F Date Time Provider Department 04/15/23 BELKYS KUNZ [facility] During your visit today, we recorded the following information about you: Lakshmi Arriaza MA 04/15/2023 8:53 AM Signed ----- Message from Belkys Kunz APRN.HIGH SCHOOL ART TEACHER sent at 04/15/2023 8:08 AM EDT ----- Please advise patient the COVID, flu and RSV test was negative. Eli Barboza LPN 04/15/2023 8:58 AM Signed Left message to return call Aracelis Elizabeth MA 04/17/2023 11:14 AM Signed Left VM on patient and emergency listed contacts, all other numbers deleted as they are incorrect or invalid. DIAN Mcgill Sabrina, MA 04/19/2023 9:15 AM Signed Pt was notified of the results. Pt verbalized understanding. Lakshmi Arriaza MA Allergies As of Date: 04/15/2023 Noted Allergy Reaction PENICILLINS 12/06/2013 2 - Rash PROZAC (FLUOXETINE) 09/24/2020 1 - Mental Status Change Comments: Lethargic Date Reviewed: 04/14/2023 Reviewed by: Lavonne Lovell - Fully Assessed Reason for Visit: Results [95] Prescriptions as of 04/19/2023 - predniSONE (DELTASONE) 10 mg tablet Take 4 tabs daily for 3 days, then 2 tabs daily for 3 days, then 1 tab daily for 3 days with food. - sertraline (ZOLOFT) 25 mg tablet Take 1 tablet by mouth once daily. - lisinopril (ZESTRIL, PRINIVIL) 20 mg tablet Take 1 tablet by mouth once daily. - ondansetron orally disintegrating (ZOFRAN ODT) 4 mg disintegrating tablet Take 1 tablet by mouth every 6 hours as needed for nausea/vomiting. - busPIRone (BUSPAR) 5 mg tablet Take 1 tablet by mouth three times daily as needed. - Brompheniramine-Pseu doeph-DM (BROMFED DM) 2-30-10 mg/5 mL syrup Take 5 mL by mouth four times daily as needed. Problem List As Of Date 04/15/2023 Noted Resolved Elevated fasting glucose [R73.01] 12/06/2013 Depression [F32.A] 12/06/2013 Fatigue [R53.83] 12/06/2013 ADHD (attention deficit hyperactivity disorder)*12/06/2013 Tobacco abuse [Z72.0] 08/18/2015 Anxiety attack [F41.0] 08/18/2015 Attention deficit hyperactivity disorder (ADHD)*08/18/2015 Low HDL (under 40) [E78.6] 08/18/2015 Encounter Status:Closed by LAKSHMI ARRIAZA on 04/19/23 [facility] CNOVmich 04-14-2023 CNOV Office Visit (UCTR) LONI MASTERSON ([id number]) 1965 F Date Time Provider Department 04/14/23 9:15 AM JOSESITO EDMONDSON [facility] During your visit today, we recorded the following information about you: Temperature Pulse Respiration Blood pressure 98.9 degrees 86/minute 16/minute 128/78 Weight 98.2 kg Josesito Edmondson APRN.HIGH SCHOOL ART TEACHER 04/14/2023 9:59 AM Signed This note was created using NoteWriter. Subjective Loni Pascual Zelalem is a 57 year old female. 57 year old female with PMH HTN, ADHD presents for illness. Acute onset this past Monday +sore throat + cough +fatigue +fever Tobacco usage, but endorses has not been able to smoke the amount she normally does. +ill contacts @ home. +ill exposures at work. Has used Theraflu, Mucinex, ASA The history is provided by the patient. No biblical languages professor was used. Sore Throat This is a new problem. The current episode started in the past 7 days. The problem has been unchanged. Neither side of throat is experiencing more pain than the other. There has been no fever. The pain is at a severity of 5/10. The pain is moderate. Associated symptoms include congestion, coughing, headaches and shortness of breath (with coughing). Pertinent negatives include no abdominal pain, diarrhea, drooling, ear discharge, ear pain, hoarse voice, plugged ear sensation, neck pain, stridor, swollen glands, trouble swallowing or vomiting. She has had no exposure to strep or mono. She has tried nothing for the symptoms. The treatment provided no relief. PAST MEDICAL HISTORY Diagnosis Date ADHD (attention deficit hyperactivity disorder) Depression Elevated fasting glucose 11/2013 GERD (gastroesophageal reflux disease) PAST SURGICAL HISTORY Procedure Laterality Date DELIVERY ONLY 1989 , low transverse ALLERGIES Penicillins and Prozac [Fluoxetine] MEDICATIONS sertraline (ZOLOFT) 25 mg tablet Take 1 tablet by mouth once daily. lisinopril (ZESTRIL, PRINIVIL) 20 mg tablet Take 1 tablet by mouth once daily. ondansetron orally disintegrating (ZOFRAN ODT) 4 mg disintegrating tablet Take 1 tablet by mouth every 6 hours as needed for nausea/vomiting. busPIRone (BUSPAR) 5 mg tablet Take 1 tablet by mouth three times daily as needed. Brompheniramine-Pseu doeph-DM (BROMFED DM) 2-30-10 mg/5 mL syrup Take 5 mL by mouth four times daily as needed. predniSONE (DELTASONE) 10 mg tablet Take 4 tabs daily for 3 days, then 2 tabs daily for 3 days, then 1 tab daily for 3 days with food. FAMILY HISTORY Problem Relation Age of Onset Cancer Father lung Hypertension Mother Hypertension Father Diabetes Mother Stroke Maternal Grandfather Alzheimer's Disease Maternal Grandmother Heart Paternal Grandmother Heart Paternal Grandfather Social History Tobacco Use Smoking status: Every Day Packs/day: 1 Types: Cigarettes Smokeless tobacco: Never Vaping Use Vaping Use: Never used Substance Use Topics Alcohol use: Yes Comment: Ocasionally Drug use: No Review of Systems Constitutional: Positive for chills and fatigue. Negative for activity change, appetite change and fever. HENT: Positive for congestion, postnasal drip, sinus pressure, sinus pain and sore throat. Negative for drooling, ear discharge, ear pain, hoarse voice and trouble swallowing. Eyes: Negative for pain, discharge and itching. Respiratory: Positive for cough and shortness of breath (with coughing). Negative for stridor. Cardiovascular: Negative for chest pain, palpitations and leg swelling. Gastrointestinal: Negative for abdominal pain, diarrhea and vomiting. Musculoskeletal: Negative for arthralgias, back pain, gait problem and neck pain. Skin: Negative for color change, pallor, rash and wound. Allergic/Immunologic : Negative for environmental allergies, food allergies and immunocompromised state. Neurological: Positive for headaches. Hematological: Negative for adenopathy. Does not bruise/bleed easily. Psychiatric/Behavior al: Negative for agitation and behavioral problems. Objective BP 128/78 Pulse 86 Temp 37.2 ?C (98.9 ?F) Resp 16 Wt 98.2 kg (216 lb 6.4 oz) LMP 08/10/2015 SpO2 97% BMI 36.01 kg/m? Physical Exam Vitals and nursing note reviewed. Constitutional: General: She is not in acute distress. Appearance: Normal appearance. She is normal weight. She is not ill-appearing, toxic-appearing or diaphoretic. HENT: Head: Normocephalic and atraumatic. Right Ear: Ear canal and external ear normal. Left Ear: Ear canal and external ear normal. Nose: Nose normal. No congestion or rhinorrhea. Mouth/Throat: Mouth: Mucous membranes are moist. Pharynx: Posterior oropharyngeal erythema present. No oropharyngeal exudate. Eyes: General: Right eye: No discharge. Left eye: No discharge. Extraocular Movements: Extraocular movements intact. (more content not included)... Normal [facility] ROUTINE FLU A/B + RSVon 03-31 FLUAV RNA JAIRO+probe Ql (Unsp spec) Not detected Normal Not Detected [facility] Comment on above: Order Comment: Speci men Type: BLOOD SPECIMEN Ordering Facility: [facility] Address: [address] [place] [address] Performed By: #### 7 3752-8, 76282-8, 11490-8 #### [facility] CLIA [id number] [address] [place] [address] [place] FLUBV RNA JAIRO+probe Ql (Unsp spec) Not detected Normal Not Detected [facility] Comment on above: Order Comment: Speci men Type: BLOOD SPECIMEN Ordering Facility: [facility] Address: [address] [place] [address] Performed By: #### 7 3752-8, 41385-4, 36826-9 #### [facility] CLIA [id number] [address] [place] [address] [place] RSV A RNA JAIRO+probe Ql (Unsp spec) Not detected Normal Not Detected [facility] Comment on above: Order Comment: Speci men Type: BLOOD SPECIMEN Ordering Facility: [facility] Address: [address] [place] [address] Performed By: #### 7 3752-8, 12091-9, 18714-2 #### [facility] CLIA [id number] [address] [place] [address] [place] SARS-CoV-2 RNA Resp Ql JAIRO+p robeon 04-14-2023 SARS-CoV-2 (COVID-19) RNA JAIRO+probe Ql (Resp) COVID 19 RESULT: Not detected The method used is RT-PCR or an equivalent NAAT method. Reference Range (the expected result in uninfected individuals): Not detected Normal [facility] Comment on above: Performed By: #### 7 3752-8, 91287-4, 20750-5 #### [facility] CLIA [id number] [address] [place] [address] [place] STREP A MOLECULAR (POC)on Procedural Control Valid [facility] Strep A (POCT) Negative Negative [facility] COVID PCR, SCREENING CONGREG ATE01-23-2020 CORONAVIRUS 2019,PCR NOT DETECTED Normal Not Detected [facility] Comment on above: Result Comment: This assay is designed to detect the N, ORF1ab and/or S genes of SARS-CoV-2 via nucleic acid amplification. A Negative (NOT DETECTED) result does not preclude 2019-nCoV infection since the adequacy of sample collection and/or low viral burden may result in presence of viral nucleic acids below the clinical sensitivity of this test method. Negative (NOT DETECTED) result should not be used as the sole basis for treatment or other patient management decisions. Rather negative results should be combined with clinical observations, patient history, and epidemiological information to make patient management decisions. Fact sheet for providers: https://www.fda.gov/media/098452/download Fact sheet for patients: https://www.fda.gov/media/281492/download This test has received FDA Emergency Use Authorization (EUA) and has been verified by [facility] ([facility]). This test is only authorized for the duration of time that circumstances exist to justify the authorization of the emergency use of in vitro diagnostic tests for the detection of SARS-CoV-2 virus and/or diagnosis of COVID-19 infection under section 564(b)(1) of the Act, 21 U.S.C. 360bbb-3(b)(1), unless the authorization is terminated or revoked sooner. [facility] ([facility]) is certified under CLIA-88 as qualified to perform high complexity testing. This tests analytical performance characteristics have been determined by [facility]. Testing is performed at [facility] is located at [address] [place] [address] (CLIA License #[id number], CAP #[id number]). Performed By: #### C VCLA #### [facility] [address] [place] [address] COVID PCR, SCREENING CONGREG ATE 01-22-2020 Lab Specimen Source Nasal, Nasopharyngeal Normal [facility] Comment on above: Performed By: #### C VCLA #### [facility] [address] [place] [address] Vital Signs Date Time Vital Sign Value Performing Clinician Ping aparicio 04-14-2023 08:57-0400 Body temperature 98.91 [degF] Josesito Palmira VEHICLE LEASING AND RENTAL MANAGER.HIGH SCHOOL ART TEACHER Work Phone: [facility] 04-14-2023 08:57-0400 Body weight 98.16 kg Josesitoaniyah Edmondson VEHICLE LEASING AND RENTAL MANAGER.HIGH SCHOOL ART TEACHER Work Phone: [facility] 04-14-2023 08:57-0400 Diastolic blood pressure 78 mm[Hg] Josesitoaniyah Edmondson VEHICLE LEASING AND RENTAL MANAGER.HIGH SCHOOL ART TEACHER Work Phone: [facility] 04-14-2023 08:57-0400 Heart rate 86 /min Josesitoaniyah Edmondson VEHICLE LEASING AND RENTAL MANAGER.HIGH SCHOOL ART TEACHER Work Phone: [facility] 04-14-2023 08:57-0400 Respiratory rate 16 /min Josesito Edmondson VEHICLE LEASING AND RENTAL MANAGER.HIGH SCHOOL ART TEACHER Work Phone: [facility] 04-14-2023 08:57-0400 SaO2% (BldA) [Mass fraction] 97 % Josesito Edmondson VEHICLE LEASING AND RENTAL MANAGER.HIGH SCHOOL ART TEACHER Work Phone: [facility] 04-14-2023 08:57-0400 Systolic blood pressure 128 mm[Hg] Josesito Edmondson VEHICLE LEASING AND RENTAL MANAGER.HIGH SCHOOL ART TEACHER Work Phone: [facility] Encounters Encounter Date Encounter Type Care Provider Facility Start: 02-26-2024 End: 02-26-2024 [facility] Start: 11-29-2023 End: 11-29-2023 ambulatory JOSESITO RAMIREZ Facility:[facility] Start: 09-20-2023 ambulatory Sujata Cavazos Work Phone: [facility] [place] Start: 04-14-2023 End: 04-14-2023 [facility] Start: 04-14-2023 End: 04-14-2023 Patient encounter procedure Josesito Edmondson VEHICLE LEASING AND RENTAL MANAGER.HIGH SCHOOL ART TEACHER Work Phone: [facility] Comment on above: Upper respiratory tr act infection, unspecified type (Primary Dx) Start: 10-05-2022 ambulatory Sujata Cavazos Work Phone: [facility] [place] Procedures Date Procedure Procedure Detail Performing Clinician Start: 04-14-2023 STREP A MOLECULAR (POC) Chriss Rodriguez MD Work Phone: Start: 10-22-2020 Lipid 1996 panel - S kirstie or Plasma Josesitoaniyah Edmondson APRN.CNP Work Phone: Start: 12-12-2013 Mammography Sujata wei MD Work Phone: Plan of Treatment Date Care Activity Detail Author Start: 10-22-2025 Lipid 1996 panel - S kirstie or Plasma Lipid Screening [facility] Start: 10-22-2025 Lipid panel Lipid Screening [facility] Start: 10-22-2025 LIPID SCREEN LIPID SCREEN [facility] Start: 11-07-2023 [facility] Start: 11-07-2023 Diabetes Screening Diabetes Screenin g [facility] Start: 04-14-2023 End: 04-28-2023 COVID & INFLUENZA A/B & RSV NAAT, ROUTINE COVID & INFLUENZA A/B & RSV NAAT, ROUTINE Microbiology Routine Upper respiratory tract infection, unspecified type Expected: 04/14/2023, Expires: 04/28/2023 [facility] Work Phone: Comment on above: Expected: 04/14/2023 , Expires: 04/28/2023 Start: 03-31-2023 Influenza vaccination Influenza Vacc ine (#1) [facility] Start: 03-31-2022 Influenza vaccination INFLUENZA (#1) [facility] Start: 12-07-2018 HPV TESTING HPV TESTING [facility] Start: 12-07-2018 Screening for malign ant neoplasm of cervix HPV Testing [facility] Start: 12-06-2018 PAP TESTING PAP TESTING [facility] Start: 12-06-2018 Screening for malign ant neoplasm of cervix Pap Testing [facility] Start: 2016 SHINGRIX VACCINE (1 of 2) SHINGRIX VACCINE (1 of 2) [facility] Start: 12-12-2014 Mammography [facility] Start: 12-12-2014 Screening for malign ant neoplasm of breast Mammogram Screening [facility] Start: 2011 COLOGUARD (FIT-DNA) COLOGUARD (FIT-D NA) [facility] Start: 2011 Colonoscopy COLONOSCOPY [facility] Start: 2011 COLORECTAL CANCER SCREENING COLORECTAL CANCER SCREENING [facility] Start: [address] [facility] Start: 2011 FECAL OCCULT BLOOD FECAL OCCULT BLOO D [facility] Start: 2011 Screening for malign ant neoplasm of colon [facility] Start: 2011 SIGMOIDOSCOPY SIGMOIDOSCOPY [facility] Start: 1985 Urine microalbumin profile [facility] Start: 1972 PNEUMOCOCCAL (1 - PCV) PNEUMOCOCCAL (1 - PCV) [facility] Start: 1972 Pneumococcal vaccination [facility] Start: [birth year]1967 COVID-19 VACCINE (#1) COVID-19 VACCI NE (#1) [facility] Start: 1965 HEPATITIS B (1 of 3 - 3-dose series) HEPATITIS B (1 of 3 - 3-dose series) [facility] Start: 1965 Hepatitis B Vaccine (1 of 3 - 3-dose series) Hepatitis B Vaccine (1 of 3 - 3-dose series) [facility] End: 11-04-2023 CASIMIRO SCREENING CASIMIRO SCREENING Radiology Routine Encounter for screening mammogram for breast cancer 1 Occurrences starting 10/05/2022 until 11/04/2023 [facility] Work Phone: Comment on above: 1 Occurrences starti ng 10/05/2022 until 11/04/2023 End: 10-19-2024 MG Breast Screening CASIMIRO SCREENING Radiology Routine Encounter for screening mammogram for breast cancer 1 Occurrences starting 09/20/2023 until 10/19/2024 [facility] Work Phone: Comment on above: 1 Occurrences starti ng 09/20/2023 until 10/19/2024 ROUTINE FLU A/B + RSV ROUTINE FL U A/B + RSV Lab Routine Upper respiratory tract infection, unspecified type Ordered: 04/14/2023 [facility] Work Phone: Comment on above: Ordered: 04/14/2023 SARS-CoV-2 (COVID-19 ) RNA [Presence] in Respiratory specimen by JAIRO with probe detection COVID NAAT, UPPER RESPIRATORY, ROUTINE Microbiology Routine Upper respiratory tract infection, unspecified type Ordered: 04/14/2023 [facility] Work Phone: Comment on above: Ordered: 04/14/2023 Payers Date Payer Category Payer Private Health Insurance [employer] [place] [id number] 2022-Present [address] [address] [place] [address] Medicaid [id number] 2022 Medicaid [id number] 2020 Unknown [employer] SELF FUNDED [id number] 2020-Present [phone] [address] [place] [address] PPO [id number] Social History Date Type Detail Facility Start: 10-07-2020 End: 04-14-2023 Tobacco smoking status WYIS Smokes tobacco daily [facility] History of tobacco use Cigarette Smoker [facility] Start: 07-08-2020 End: 10-07-2020 Cigarettes smoked current (pack per day) - Reported 1 [facility] Start: 10-07-2020 End: 04-14-2023 Tobacco use and exposure Smokeless tobacco non-user [facility] Start: 10-23-2020 End: 04-14-2023 Alcohol intake Current drinker of alcohol (finding) [facility] Start: 12-06-2013 Alcohol Comment Ocasionally [facility] Start: 1965 Sex Assigned At Not on file [facility] Start: 07-08-2020 End: 04-14-2023 Tobacco use panel [facility] National Score (1-10 0), lower number is lower risk Not on file [facility] Clinical Note 09-20-2023 Note Date & Type Note Facility 09-20-2023 Note Patient Outreach (IN [facility]) LONI MASTERSON ([id number]) 1965 F Date Time Provider Department 09/20/23 SUJATA GLOVER During your visit today, we recorded the following information about you: Allergies As of Date: 09/20/2023 Noted Allergy Reaction PENICILLINS 12/06/2013 2 - Rash PROZAC (FLUOXETINE) 09/24/2020 1 - Mental Status Change Comments: Lethargic Date Reviewed: 04/14/2023 Reviewed by: Lavonne Lovell - Fully Assessed Visit Diagnosis:Encounter for screening mammogram for breast cancer [Z12.31] Order(s):[facility] [[id number]] Order #: [id number] FUTURE Prescriptions as of 09/25/2023 - predniSONE (DELTASONE) 10 mg tablet Take 4 tabs daily for 3 days, then 2 tabs daily for 3 days, then 1 tab daily for 3 days with food. - sertraline (ZOLOFT) 25 mg tablet Take 1 tablet by mouth once daily. - lisinopril (ZESTRIL, PRINIVIL) 20 mg tablet Take 1 tablet by mouth once daily. - ondansetron orally disintegrating (ZOFRAN ODT) 4 mg disintegrating tablet Take 1 tablet by mouth every 6 hours as needed for nausea/vomiting. - busPIRone (BUSPAR) 5 mg tablet Take 1 tablet by mouth three times daily as needed. - Pbagqlzxotahivg-Xtyjdbkyn-CY (BROMFED DM) 2-30-10 mg/5 mL syrup Take 5 mL by mouth four times daily as needed. Problem List As Of Date 09/20/2023 Noted Resolved Elevated fasting glucose [R73.01] 12/06/2013 Depression [F32.A] 12/06/2013 Fatigue [R53.83] 12/06/2013 ADHD (attention deficit hyperactivity disorder)*12/06/2013 Tobacco abuse [Z72.0] 08/18/2015 Anxiety attack [F41.0] 08/18/2015 Attention deficit hyperactivity disorder (ADHD)*08/18/2015 Low HDL (under 40) [E78.6] 08/18/2015 Encounter Status:Closed by TERESA DESIRUSER on 09/25/23 [facility] Progress note 04-14-2023 Note Date & Type Note Facility 04-14-2023 Note HNO ID: [id number] Author: Josesito Edmondson APRN.[employer]ER Service: ? Author Type: Nurse Practitioner Type: Progress Notes Filed: 04/14/2023 9:59 AM Note Text: This note was created using [employer]. Subjective Loni Masterson is a 57 year old female. 57 year old female with PMH HTN, ADHD presents for illness. Acute onset this past Monday +sore throat + cough +fatigue +fever Tobacco usage, but endorses has not been able to smoke the amount she normally does. +ill contacts @ home. +ill exposures at work. Has used Theraflu, Mucinex, ASA The history is provided by the patient. No biblical languages professor was used. Sore Throat This is a new problem. The current episode started in the past 7 days. The problem has been unchanged. Neither side of throat is experiencing more pain than the other. There has been no fever. The pain is at a severity of 5/10. The pain is moderate. Associated symptoms include congestion, coughing, headaches and shortness of breath (with coughing). Pertinent negatives include no abdominal pain, diarrhea, drooling, ear discharge, ear pain, hoarse voice, plugged ear sensation, neck pain, stridor, swollen glands, trouble swallowing or vomiting. She has had no exposure to strep or mono. She has tried nothing for the symptoms. The treatment provided no relief. PAST MEDICAL HISTORY Diagnosis Date ADHD (attention deficit hyperactivity disorder) Depression Elevated fasting glucose 11/2013 GERD (gastroesophageal reflux disease) PAST SURGICAL HISTORY Procedure Laterality Date DELIVERY ONLY 1989 , low transverse ALLERGIES Penicillins and Prozac [Fluoxetine] MEDICATIONS sertraline (ZOLOFT) 25 mg tablet Take 1 tablet by mouth once daily. lisinopril (ZESTRIL, PRINIVIL) 20 mg tablet Take 1 tablet by mouth once daily. ondansetron orally disintegrating (ZOFRAN ODT) 4 mg disintegrating tablet Take 1 tablet by mouth every 6 hours as needed for nausea/vomiting. busPIRone (BUSPAR) 5 mg tablet Take 1 tablet by mouth three times daily as needed. Ysdmodhghegxicv-Kcbdpgxxx-JR (BROMFED DM) 2-30-10 mg/5 mL syrup Take 5 mL by mouth four times daily as needed. predniSONE (DELTASONE) 10 mg tablet Take 4 tabs daily for 3 days, then 2 tabs daily for 3 days, then 1 tab daily for 3 days with food. FAMILY HISTORY Problem Relation Age of Onset Cancer Father lung Hypertension Mother Hypertension Father Diabetes Mother Stroke Maternal Grandfather Alzheimer's Disease Maternal Grandmother Heart Paternal Grandmother Heart Paternal Grandfather Social History Tobacco Use Smoking status: Every Day Packs/day: 1 Types: Cigarettes Smokeless tobacco: Never Vaping Use Vaping Use: Never used Substance Use Topics Alcohol use: Yes Comment: Ocasionally Drug use: No Review of Systems Constitutional: Positive for chills and fatigue. Negative for activity change, appetite change and fever. HENT: Positive for congestion, postnasal drip, sinus pressure, sinus pain and sore throat. Negative for drooling, ear discharge, ear pain, hoarse voice and trouble swallowing. Eyes: Negative for pain, discharge and itching. Respiratory: Positive for cough and shortness of breath (with coughing). Negative for stridor. Cardiovascular: Negative for chest pain, palpitations and leg swelling. Gastrointestinal: Negative for abdominal pain, diarrhea and vomiting. Musculoskeletal: Negative for arthralgias, back pain, gait problem and neck pain. Skin: Negative for color change, pallor, rash and wound. Allergic/Immunologic: Negative for environmental allergies, food allergies and immunocompromised state. Neurological: Positive for headaches. Hematological: Negative for adenopathy. Does not bruise/bleed easily. Psychiatric/Behavioral: Negative for agitation and behavioral problems. Objective BP 128/78 Pulse 86 Temp 37.2 ?C (98.9 ?F) Resp 16 Wt 98.2 kg (216 lb 6.4 oz) LMP 08/10/2015 SpO2 97% BMI 36.01 kg/m? Physical Exam Vitals and nursing note reviewed. Constitutional: General: She is not in acute distress. Appearance: Normal appearance. She is normal weight. She is not ill-appearing, toxic-appearing or diaphoretic. HENT: Head: Normocephalic and atraumatic. Right Ear: Ear canal and external ear normal. Left Ear: Ear canal and external ear normal. Nose: Nose normal. No congestion or rhinorrhea. Mouth/Throat: Mouth: Mucous membranes are moist. Pharynx: Posterior oropharyngeal erythema present. No oropharyngeal exudate. Eyes: General: Right eye: No discharge. Left eye: No discharge. Extraocular Movements: Extraocular movements intact. Conjunctiva/sclera: Conjunctivae normal. Pupils: Pupils are equal, round, and reactive to light. Cardiovascular: Rate and Rhythm: Normal rate and regular rhythm. Pulses: Normal pulses. Heart sounds: Normal heart sounds. No murmur heard. No friction rub. Pulmonary: Ef (more content not included)... [facility] History of Present illness Narrative 04-14-2023 Josesito Edmondson APRN.HIGH SCHOOL [employer] TEACHER - 04/14/2023 9:07 AM EDT Note Date & Type Note Facility 04-14-2023 History of Presen t illness Narrative This note was created using [employer]. Subjective Loni Masterson is a 57 year old female. 57 year old female with PMH HTN, ADHD presents for illness. Acute onset this past Monday +sore throat + cough +fatigue +fever Tobacco usage, but endorses has not been able to smoke the amount she normally does. +ill contacts @ home. +ill exposures at work. Has used Theraflu, Mucinex, ASA The history is provided by the patient. No biblical languages professor was used. Sore Throat This is a new problem. The current episode started in the past 7 days. The problem has been unchanged. Neither side of throat is experiencing more pain than the other. There has been no fever. The pain is at a severity of 5/10. The pain is moderate. Associated symptoms include congestion, coughing, headaches and shortness of breath (with coughing). Pertinent negatives include no abdominal pain, diarrhea, drooling, ear discharge, ear pain, hoarse voice, plugged ear sensation, neck pain, stridor, swollen glands, trouble swallowing or vomiting. She has had no exposure to strep or mono. She has tried nothing for the symptoms. The treatment provided no relief. PAST MEDICAL HISTORY Diagnosis Date ADHD (attention deficit hyperactivity disorder) Depression Elevated fasting glucose 11/2013 GERD (gastroesophageal reflux disease) PAST SURGICAL HISTORY Procedure Laterality Date DELIVERY ONLY 1989 , low transverse ALLERGIES Penicillins and Prozac [Fluoxetine] MEDICATIONS sertraline (ZOLOFT) 25 mg tablet Take 1 tablet by mouth once daily. lisinopril (ZESTRIL, PRINIVIL) 20 mg tablet Take 1 tablet by mouth once daily. ondansetron orally disintegrating (ZOFRAN ODT) 4 mg disintegrating tablet Take 1 tablet by mouth every 6 hours as needed for nausea/vomiting. busPIRone (BUSPAR) 5 mg tablet Take 1 tablet by mouth three times daily as needed. Wtbttjndauwuyoe-Imyvufmfr-LT (BROMFED DM) 2-30-10 mg/5 mL syrup Take 5 mL by mouth four times daily as needed. predniSONE (DELTASONE) 10 mg tablet Take 4 tabs daily for 3 days, then 2 tabs daily for 3 days, then 1 tab daily for 3 days with food. FAMILY HISTORY Problem Relation Age of Onset Cancer Father lung Hypertension Mother Hypertension Father Diabetes Mother Stroke Maternal Grandfather Alzheimer's Disease Maternal Grandmother Heart Paternal Grandmother Heart Paternal Grandfather Social History Tobacco Use Smoking status: Every Day Packs/day: 1 Types: Cigarettes Smokeless tobacco: Never Vaping Use Vaping Use: Never used Substance Use Topics Alcohol use: Yes Comment: Ocasionally Drug use: No Review of Systems Constitutional: Positive for chills and fatigue. Negative for activity change, appetite change and fever. HENT: Positive for congestion, postnasal drip, sinus pressure, sinus pain and sore throat. Negative for drooling, ear discharge, ear pain, hoarse voice and trouble swallowing. Eyes: Negative for pain, discharge and itching. Respiratory: Positive for cough and shortness of breath (with coughing). Negative for stridor. Cardiovascular: Negative for chest pain, palpitations and leg swelling. Gastrointestinal: Negative for abdominal pain, diarrhea and vomiting. Musculoskeletal: Negative for arthralgias, back pain, gait problem and neck pain. Skin: Negative for color change, pallor, rash and wound. Allergic/Immunologic: Negative for environmental allergies, food allergies and immunocompromised state. Neurological: Positive for headaches. Hematological: Negative for adenopathy. Does not bruise/bleed easily. Psychiatric/Behavioral: Negative for agitation and behavioral problems. Objective BP 128/78 Pulse 86 Temp 37.2 C (98.9 F) Resp 16 Wt 98.2 kg (216 lb 6.4 oz) LMP 08/10/2015 SpO2 97% BMI 36.01 kg/m Physical Exam Vitals and nursing note reviewed. Constitutional: General: She is not in acute distress. Appearance: Normal appearance. She is normal weight. She is not ill-appearing, toxic-appearing or diaphoretic. HENT: Head: Normocephalic and atraumatic. Right Ear: Ear canal and external ear normal. Left Ear: Ear canal and external ear normal. Nose: Nose normal. No congestion or rhinorrhea. Mouth/Throat: Mouth: Mucous membranes are moist. Pharynx: Posterior oropharyngeal erythema present. No oropharyngeal exudate. Eyes: General: Right eye: No discharge. Left eye: No discharge. Extraocular Movements: Extraocular movements intact. Conjunctiva/sclera: Conjunctivae normal. Pupils: Pupils are equal, round, and reactive to light. Cardiovascular: Rate and Rhythm: Normal rate and regular rhythm. Pulses: Normal pulses. Heart sounds: Normal heart sounds. No murmur heard. No friction rub. Pulmonary: Effort: Pulmonary effort is normal. No respiratory distress. Breath sounds: Normal breath sounds. No stridor. No wheezing, rhonchi or rales. Comments: Harsh cough with deep inspiration Chest: Chest wall: No tenderness. Abdominal: General: Abdomen is flat. There is no distension. Palpations: Abdomen is soft. There is no mass. Tenderness: There is no abdominal tenderness. There is no right CVA tenderness, left CVA tenderness, guarding or rebound. Hernia: No hernia is present. Musculoskeletal: General: No swelling, tenderness, deformity or signs of injury. Normal range of motion. Cervical back: Normal range of motion and neck supple. No rigidity. Right lower leg: No edema. Left lower leg: No edema. Lymphadenopathy: Cervical: No cervical adenopathy. Skin: General: Skin is warm and dry. Capillary Refill: Capillary refill takes less than 2 seconds. Coloration: Skin is not jaundiced or pale. Findings: No bruising, erythema, lesion or rash. Neurological: General: No focal deficit present. Mental Status: She is alert and oriented to person, place, and time. Cranial Nerves: No cranial nerve deficit. Sensory: No sensory deficit. Motor: No weakness. Coordination: Coordination normal. Gait: Gait normal. Psychiatric: Mood and Affect: Mood normal. Behavior: Behavior normal. Thought Content: Thought content normal. Judgment: Judgment normal. Assessment and Plan ASSESSMENT/PLAN: 1. Upper respiratory tract infection, unspecified type - ICD9: 465.9, ICD10: J06.9 X 4 days - Discussed viral etiology and rationale for treatment. - Group A strep molecular testing negative - Symptomatic treatment with prn analgesia - Supportive care with fluids and rest - The patient may also use OTC cough and cold meds as needed, warm salt water gargles, throat lozenges and/or OTC throat spray as needed, and nasal saline gtts and suction prn. 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 [facility] Evaluation note Note Date & Type Note Facility Evaluation note Diagnosis Encounter for screening mammogram for breast cancer documented in this encounter [facility] Evaluation note Note Date & Type Note Facility Evaluation note Diagnosis Upper respiratory tract infection, unspecified type- Primary documented in this encounter [facility] Evaluation note Note Date & Type Note Facility Evaluation note Diagnosis Encounter for screening mammogram for breast cancer documented in this encounter [facility] Reason for referral (narrative) Diagnostic Procedure Only (Routine) - Pending Review Note Date & Type Note Facility Reason for referral (narrati ve) Specialty Diagnoses / Procedures Referred By Contac t Referred To Contact [facility] Diagnoses Encounter for screening mammogram for breast cancer Procedures [facility] SCREENING SCREENING MAMMOGRAPHY BI 2-VIEW BREAST INC Sujata Lamar MD [address] [place] [address] [facility] [address] [place] [address] Referral ID Status Reason Start Date Expiration Date Visits Requested Visits Authorized [id number] Pending Review Auto-Generat ed Referral 10/05/2022 11/04/2023 [facility] Reason for referral (narrative) Diagnostic Procedure Only (Routine) - Pending Review Note Date & Type Note Facility Reason for referral (narrati ve) Specialty Diagnoses / Procedures Referred By Mireille maria Referred To Contact [facility] Diagnoses Encounter for screening mammogram for breast cancer Procedures [facility]IRO SCREENING SCREENING MAMMOGRAPHY BI 2-VIEW BREAST INC CAD Sujata Glover MD [address] [place] [address] [facility] [address] [place] [address] Referral ID Status Reason Start Date Expiration Date Visits Requested Visits Authorized [id number] Pending Review Auto-Generat ed Referral 09/20/2023 10/19/2024 1 [facility] Summary Purpose Family History No Family History Records FoundNo Family History Records Found Advance Directives No Advanced Directives Records FoundNo Advanced Directives Records Found Health Concerns Infection Onset Date Last Indicated Resolved Time COVID-19 Rule-Out 04/14/2023 04/14/2023 Additional Source Comments INFORMATION SOURCE (unrecogn ized section and content) DATE CREATED AUTHOR 02/18/2020 [facility] DATE CREATED AUTHOR AUTHOR'S ORGANIZ ATION 02/27/2024 [facility] Source Comments (unrecognize d section and content) In the event this informatio n is protected by the Federal Confidentiality of Alcohol and Drug Abuse Patient Records regulations: The Federal rules restrict any use of the information to criminally investigate or prosecute any alcohol or drug abuse patient.[facility] the event this information is protected by the Federal Confidentiality of Alcohol and Drug Abuse Patient Records regulations: The Federal rules restrict any use of the information to criminally investigate or prosecute any alcohol or drug abuse patient.[facility] the event this information is protected by the Federal Confidentiality of Alcohol and Drug Abuse Patient Records regulations: The Federal rules restrict any use of the information to criminally investigate or prosecute any alcohol or drug abuse patient.[facility] Care Teams (unrecognized sec tion and content) [employer] Relationship Specialty Start Date End Date Sujata Glover MD [address] [place], [place] [address] PCP - General Internal Medicine 10/29/20 [employer] Relationship Specialty Start Date End Date Sujata Glover MD [address] [place], [place] [id number] PCP - General Internal Medicine 10/29/20 [employer] Pro[employer] Relationship Specialty Start Date End Date Sujata Glover MD [address] [place], [place] [id number] PCP - General Internal Medicine 10/29/20 Reason for Visit (unrecogniz ed section and content) Reason Comments Sore Throat Fever and cough FOR RECORDS PERTAINING TO PATIENTS WHO ARE OR HAVE BEEN ENROLLED IN A CHEMICAL DEPENDENCY/SUBSTANCEABUSE PROGRAM, SOME INFORMATION MAY BE OMITTED. This clinical summary was aggregated from multiple sources. Caution should be exercised in using it in the provision of clinical care. This summary normalizes information from multiple sources, and as a consequence, information in this document may materially change the coding, format and clinical context of patient data. In addition, data may be omitted in some cases. CLINICAL DECISIONS SHOULD BE BASED ON THE PRIMARY CLINICAL RECORDS. [facility]. provides no warranty or guarantee of the accuracy or completeness of information in this document.
[2024-05-28 12:50] LABS: Absolute Neutrophil Count 5.3 X10^3/uL (2.0-7.7); Basophil# 0.06 X10^3/uL; Basophil% 0.7 % (0-1); Eosinophil# 0.39 X10^3/uL; Eosinophils% 4.3 % (0-5); Hematocrit 45.8 % (40-54); Hemoglobin 15.2 g/dL (13.0-16.5); Lymphocyte % 30.9 % (19-41); Mean Corp Hgb Conc 33.2 g/dL (32-36); Mean Corpuscular Hgb 31.8 pg (27.0-32.0); Mean Corpuscular Volume 95.8 fL (80-94); Mean Platelet Vol. 11.3 fl (6.2-12.0); Monocyte# 0.51 X10^3/uL; Monocyte% 5.6 % (0-10); NRBC Flagged by Analyzer 0 % (0-5); Neutrophil # 5.28 X10^3/uL (2.7-7.7); Neutrophil % 58.3 % (47-70); Platelet Count 205 K/mm3 (150-450); RBC Distribution Width SD 42.7 fl (35.1-43.9); Red Blood Count 4.78 M/mm3 (4.6-6.2); White Blood Count 9.1 K/mm3 (4.4-11.0)
[2024-05-28 13:25] LABS: AST(SGOT) 77 U/L (15-37); Alanine Aminotransfer ALT/SGPT 59 U/L (16-61); Albumin, Serum 3.8 g/dL (3.2-5.0); Alkaline Phosphatase 156 U/L (45-117); Anion Gap 9 (5-15); BUN 9 mg/dL (7-18); BUN/Creat Ratio 10.6 RATIO (10-20); Calcium,Total 9.4 mg/dL (8.5-10.1); Chloride 108 mmol/L (98-107); Cholesterol 138 mg/dL (200); Creatinine, Serum 0.85 mg/dL (0.70-1.30); EST Glomerular Filtration Rate 99 mL/min (>60); Est Glom Filt Rate - Afr Amer 120 mL/min (>60); Globulin 3.9 g/dL (2.2-4.2); Glucose 185 mg/dL (74-106); High Density Lipoprotein 47 mg/dL; Protein, Total 7.7 g/dL (6.4-8.2); Sodium Level 139 mmol/L (136-145); Triglycerides 119 mg/dL; Very Low Density Lipoprotein 24 mg/dL (5-40)
[2024-05-28 13:28] LABS: Microalbumin,Random Urine 25.7 mg/L (NO RANGE EST.)
== END | disposition home or self-care (01) ==
LOC: LAB.FUTURE 10:20
PROVIDERS: Visit Provider Nurse Practitioner Family
DX: E11.9 Type 2 diabetes mellitus without complications (principal); E55.9 Vitamin D deficiency, unspecified
CPT/HCPCS: 36415; 80053; 80061; 82043; 84443; 85025